=== PATIENT | female | born 1990 | race Caucasian/White ===

== ENCOUNTER 2016-07-26 08:54 | Outpatient (CLI) | payer OTHER ==
[~2016-07-26] VITALS: Ht 170.2 cm; Wt 65.9 kg
[2016-07-26] MEDS ORDERED: PRENTAB9 PO (09:18)
[2016-07-26 09:19] VITALS: BP 114/63
== END 2016-07-26 09:50 | disposition home or self-care (01) ==
LOC: M LDO 08:54
PROVIDERS: ATTEND Obstetrics & Gynecology
DX: O26.892 Other specified pregnancy related conditions, second trimester (principal); M54.5 Low back pain; Z3A.24 24 weeks gestation of pregnancy

== ENCOUNTER 2016-11-16 22:05 | Inpatient (IN) | payer OTHER ==
[~2016-11-16] VITALS: Ht 170.2 cm; Wt 74.0 kg
[~2016-11-16 22:05] MED LIST: PRENTAB9 PO
[2016-11-16 22:21] VITALS: BP 129/74
[2016-11-16] MEDS ORDERED: LR 1,000 ML IV SCH (23:15)
[2016-11-16] MEDS ORDERED: miSOPROStol 50 MCG 1/2 TAB (S0191) PO ONE (23:15)
[2016-11-16 23:33] VITALS: BP 128/68
[2016-11-16 23:33] LABS: MEAN CORPUSCULAR HEMOGLOBIN 25.8 pg (27.0-33.0); MEAN CORPUSCULAR HGB CONC 33.4 g/dl (32.0-36.5); MEAN CORPUSCULAR VOLUME 77.1 fl (80.0-96.0); RED CELL DISTRIBUTION WIDTH 16.6 % (11.5-14.5); WHITE BLOOD COUNT 10.6 K/mm3 (4.0-10.0)
[2016-11-17] VITALS (36 sets, daily range): BP systolic 103–152; BP diastolic 49–77
--- NOTE | 2016-11-17 00:10 | HPE ---
DATE OF ADMISSION: 11/16/2016 HISTORY: A 26-year-old 2, para 1, last menstrual period (LMP) 01/26/2016, estimated date of confinement (EDC) 11/09/2016 at 41 weeks of gestation for induction of labor. PAST HISTORY: 2013: Spontaneous vaginal delivery at term, female 7 pounds 0 ounces, epidural in place. LABORATORIES: Show O+, HIV negative, hepatitis negative, RPR negative, rubella immune. Varicella by history. Pap: low-grade squamous intraepithelial lesions (LSIL). Urine negative. Gonorrhea and chlamydia negative. One-hour glucose 110. Group B Streptococcus (GBS) negative. Cystic fibrosis (CF) declined. On examination, no acute distress. Symphysis fundus height is 42, vertex OP posterior, not dilated, 80% effaced -1 station. Temperature 99.2, respirations 18, pulse 70, blood pressure 129/74. Urine 10/25, pH 6, negative, negative, negative. She is normocephalic, atraumatic. NECK: Full range of motions. Pupils equal and reactive to light. Category 1 strip. CHEST: Clear bilaterally bases. No wheezes or rhonchi. No costovertebral angle (CVA) tenderness. Distal pulses symmetric. No evidence of deep venous thrombosis (DVT), pulmonary embolism (PE), or superficial phlebitis. Nontender uterus. Symphysis fundus height is appropriate. Four quadrant bowel sounds are noted. No rashes, lesions or pruritus. No arthralgia or myalgia. No complaints of cough, wheezes, shortness of breath or dyspnea on exertion. No chest pain. She has a latex allergy and she is neurologically complete. No bleeding. No incontinency, frequency. No nausea, vomiting, diarrhea, constipation. No diabetic issues, gynecological issues. She has LSIL on Pap smear. ALLERGIES: LATEX. PAST MEDICAL HISTORY: Unremarkable. PAST SURGICAL HISTORY: Negative. FAMILY HISTORY: Noncontributory. SOCIAL HISTORY: Does not smoke or drink, does not abuse drugs. Father of the baby is not involved, but she has a good support system. IN SUMMARY: We have a post age gestation for induction of labor. PLAN: Is to hydrate her, Cytotec orally, anticipate epidural on an as needed basis.
[2016-11-17] MEDS ORDERED: OXYTOCIN DRIP 30 UNITS in APPROPRIATE DILUENT 1 EA IV SCH ×2 (04:00→10:49)
[2016-11-17] MEDS ORDERED: FENTANYL 2MCG/ML ROPIVACAINE 0.2% IN 0.9% NACL 200ML IVBAG As Ordered ONE (04:23)
[2016-11-17] MEDS ORDERED: FENTANYL/ROPIVACAINE/NACL BAG 200 ML EPIDURAL SCH (05:45)
[2016-11-17] MEDS ORDERED: REFRIGERATOR IV KEYS XX PRN (05:45)
[2016-11-17] MEDS ORDERED: LACTATED RINGER'S 1000 ML IV PRN (05:45)
[2016-11-17] MEDS ORDERED: NALOXONE INJ 0.4 MG/1 ML VIAL (J2310) IV PRN (05:45)
[2016-11-17] MEDS ORDERED: EPIDURAL/PCA KEYS XX PRN (05:45)
[2016-11-17] MEDS ORDERED: ONDANSETRON 4MG/2ML VIAL (J2405) IV PRN (05:45)
[2016-11-17] MEDS ORDERED: diphenhydrAMINE INJ 50MG/ML VIAL (J1200) IV PRN (05:45)
[2016-11-17] MEDS ORDERED: ePHEDrine SULFATE 25 MG/5 ML(5MG/ML) SYRINGE IV PRN (05:45)
[2016-11-17] MEDS ORDERED: EPIDURAL COMMENT XX SCH (05:45)
--- NOTE | 2016-11-17 08:46 | IPNPDOC ---
Text Note Date of Service The patient was seen on 11/17/16. NOTE SBAR from Dr Jackson at ~0730. IOL overnight for PPD. since 729 FHT Cat 2, mod roma, rare accel, periods of min roma but still making progressive change, per RN just now 8-9/100, head on right side and very high ( consistent with my MELISA yesterday which showed the vtx not in the pelvis and on the pt's right, not in the midline) Plan on recheck by myscalderonf at 1030 or sooner prn Sessions VS,Starr, I+O VS, Starr, I+O Laboratory Tests 11/16/16 23:13 Red Blood Count 3.90 L, Mean Corpuscular Volume 77.1 L, Mean Corpuscular Hemoglobin 25.8 L, Mean Corpuscular Hemoglobin Concent 33.4, Red Cell Distribution Width 16.6 H Vital Signs Date Time Temp Pulse Resp B/P (MAP) Pulse Ox O2 Delivery O2 Flow Rate FiO2 11/17/16 06:35 63 18 118/70 (86) 11/17/16 06:05 98.6 SESSIONS,IGGY Montoya MD November 17, 2016 08:46
[2016-11-17] MEDS: PRENATAL VITAMIN TAB PO SCH (09:00)
[2016-11-17] MEDS: DOCUSATE SODIUM 100 MG CAP PO SCH ×2 (09:00→21:00)
--- NOTE | 2016-11-17 10:56 | DNPDOC ---
[facility] Delivery Note Delivery Note DATE OF DELIVERY: November 16, 2016 at 22:05 PREDELIVERY DIAGNOSIS: 41 1/7 weeks' gestation and labor. POST DELIVERY DIAGNOSIS: Delivered. PROCEDURE: Spontaneous vaginal delivery MANAGER CONTRACTING: Dr. Dickinson ANESTHESIA: Epidural ESTIMATED BLOOD LOSS: 300 mL. FINDINGS: 10 pound 4 ounce male , Score 8/9 DELIVERY SUMMARY: Pushed moderately, slight turtling noted, RN ready with stool for dystocia maneuvers. Adeq pelvis. Mod'd Ritgen to del the vtx, no delay for the anterior shoulder or post shoulder. Obviously a tight fit but persistent progress with each step of the delivery. To abd with good tone and spont cry. Cord C/C by FOB. Cord blood. Placenta intact with slight traction and fundal massage, pit going wide open. fundus firm. 1st degr lac repaired in standard fashion with 3-0 vicryl, good cosmesis/hemostasis. Uncomplicated delivery. IGGY DICKINSON MD November 17, 2016 10:56
[2016-11-17] MEDS ORDERED: ACETAMINOPHEN TAB 650MG DOSE (2X325MG) PO PRN (11:00)
[2016-11-17] MEDS ORDERED: MEASLES,MUMPS,RUBELLA VACCINE INJ (MMR-II) (90707) SC SCH (11:00)
[2016-11-17] MEDS ORDERED: METOCLOPRAMIDE INJ 10MG/2ML VIAL (J2765) IV PRN (11:00)
[2016-11-17] MEDS ORDERED: DIBUCAINE 1% OINTMENT 30GM TOP PRN (11:00)
[2016-11-17] MEDS ORDERED: RHOGAM 300 MCG (1500 IU) INJ (J2790) IM SCH (11:00)
[2016-11-17] MEDS ORDERED: METOCLOPRAMIDE INJ 10MG/2ML VIAL (J2765) IV ONE (12:15)
[2016-11-17] MEDS: IBUPROFEN 800 MG TAB PO PRN (13:49)
[2016-11-18] MEDS: IBUPROFEN 800 MG TAB PO PRN ×2 (01:08→17:10)
[2016-11-18 05:41] VITALS: BP 126/73
--- NOTE | 2016-11-18 06:12 | IPNPDOC ---
Text Note Date of Service The patient was seen on 11/18/16. NOTE PPD1 prog note States feeling well, no complaints. No heavy VB. Pain controlled. Voiding, ambulatory. Bonding well and bottle feeding. VSSAF CTAB RRR Ut at U-2, firm Ext no CCE a/p: Doing well. Likely d/c this afternoon/evening. To bonding if baby not released. Sessions VSStarr, I+O VSStarr I+O Vital Signs Date Time Temp Pulse Resp B/P (MAP) Pulse Ox O2 Delivery O2 Flow Rate FiO2 11/18/16 05:41 98.7 56 20 126/73 (90) 11/17/16 14:15 99 Room Air I&O- Last 24 Hours up to 6 AM 11/18/16 06:00 Intake Total 1638 ml Output Total 2750 ml Balance -1112 ml TEENA,IGGY Montoya MD November 18, 2016 06:12
--- NOTE | 2016-11-18 06:20 | DS.PDOC ---
Discharge Summary General Date of Admission November 16, 2016 at 22:05 Date of Discharge [id number] Discharge Summary PROCEDURES PERFORMED DURING STAY: spontaneous vaginal delivery after successful induction for pending postdates. ADMITTING DIAGNOSES: induction of labor at 41+1 DISCHARGE DIAGNOSES: 1. Healthy male infant HOSPITAL COURSE: Admitted for induction. Underwent an uncomplicated induction and delivery. See delivery note. DISCHARGE MEDICATIONS: Motrin, Colace, Tylenol, Mononessa (do not start until 4 weeks after delivery) Physical exam: see note from this morning LABORATORY DATA: Please see below. ACTIVITY: as tolerated. Nothing in vagina for 6 weeks. DIET: regular DISPOSITION:stable TIME SPENT ON DISCHARGE: Greater than 15 minutes. Sessions Vital Signs/I&Os Vital Signs Date Time Temp Pulse Resp B/P (MAP) Pulse Ox O2 Delivery O2 Flow Rate FiO2 11/18/16 05:41 98.7 56 20 126/73 (90) 11/17/16 14:15 99 Room Air I&O- Last 24 Hours up to 6 AM 11/18/16 05:59 Intake Total 1638 ml Output Total 2750 ml Balance -1112 ml Allergies Coded Allergies: Latex (Verified Allergy, Unknown, burning, itching, 11/17/16) SESSIONS,IGGY Montoya MD November 18, 2016 06:20
[2016-11-18] MEDS: PRENATAL VITAMIN TAB PO SCH (07:55)
[2016-11-18] MEDS: DOCUSATE SODIUM 100 MG CAP PO SCH (07:55)
[2016-11-18] MEDS ORDERED: COLA100C3 PO (10:36)
[2016-11-18] MEDS ORDERED: ACET50TA PO (10:37)
[2016-11-18] MEDS ORDERED: IBUP-1114 PO (10:37)
[2016-11-18] MEDS ORDERED: PRENTAB9 PO (10:37)
[2016-11-18] MEDS ORDERED: DIBU1OIN TOP (10:38)
--- NOTE | 2016-11-20 10:37 | IPN ---
DATE: 11/16/2016 This lady and requested circumcision of their male . After discussing the risks and benefits of circumcision, the medical and the nonmedical indications, the penile block and aftercare, answered all questions. They expressed understanding penile block and aftercare, risks and benefits, signed and witnessed the consent form. We await the clearance by the motor vehicle inspector.
== END 2016-11-18 18:00 | disposition home or self-care (01) | DRG 775 ==
LOC: M LDI 22:05 → M OBS 11-17 14:26
PROVIDERS: ADMIT Obstetrics & Gynecology; ATTEND Obstetrics & Gynecology
PROC: 10E0XZZ Delivery of Products of Conception, External Approach (ICD-10-PCS; principal; 2016-11-16)
PROC: 0HQ9XZZ Repair Perineum Skin, External Approach (ICD-10-PCS; 2016-11-16)
PROC: 3E0DXGC Introduction of Other Therapeutic Substance into Mouth and Pharynx, External Approach (ICD-10-PCS; 2016-11-16)
DX: O48.0 Post-term pregnancy (principal); Z37.0 Single live birth; Z3A.41 41 weeks gestation of pregnancy; Z91.040 Latex allergy status; O70.0 First degree perineal laceration during delivery

== ENCOUNTER 2017-05-16 02:57 | Emergency (ER) | payer OTHER ==
[~2017-05-16] VITALS: Ht 170.2 cm; Wt 63.6 kg
[~2017-05-16 02:57] MED LIST changes: +ACET50TA PO; +COLA100C5 PO; +DIBU1OIN TOP; +IBUP-1114 PO
[2017-05-16] MEDS ORDERED: ONDANSETRON 4 MG ORAL DISINTEGRATING TAB (S0181) PO ONE (07:30)
[2017-05-16] MEDS ORDERED: ONDA8TAB8 PO (09:43)
[2017-05-16 09:52] VITALS: BP 114/66
== END 2017-05-16 09:54 | disposition home or self-care (01) ==
LOC: M ED 02:57
DX: K52.9 Noninfective gastroenteritis and colitis, unspecified (principal)

== ENCOUNTER 2017-09-01 04:50 | Emergency (ER) | payer OTHER | END 2017-09-01 07:48 | disposition home or self-care (01) | LOC: M ED 04:50 | DX: S20.20XA Contusion of thorax, unspecified, initial encounter (principal); W01.198A Fall on same level from slipping, tripping and stumbling with subsequent striking against other object, initial encounter; Y92.009 Unspecified place in unspecified non-institutional (private) residence as the place of occurrence of the external cause; Z91.040 Latex allergy status; Z79.899 Other long term (current) drug therapy | CPT/HCPCS: 99283 ==